=== PATIENT | female | born 1940 | race Caucasian/White ===

== ENCOUNTER → 2017-02-11 | Outpatient (CLI) | payer OTHER ==
[~2017-02-11] MED LIST: COMBIVENT INH14.7 GM INH; DIOVAN HCT 1601 EACH PO; DIOVAN320 MG PO; LEVOFLOXACIN500 MG PO; PREMARIN; PREMARIN1.25 MG PO; TORSEMIDE20 MG PO; Z.0.GEMFIBROZIL600 M PO; Z.0.LEVOTHROID75 MCG PO; Z.0.LISINOPRIL20 MG; Z.0.TOPROL XL25 MG PO; Z.0.ZOLOFT100 MG PO
== END ==
LOC: NPA 12:00
DX: S72.012D Unspecified intracapsular fracture of left femur, subsequent encounter for closed fracture with routine healing (principal)

== ENCOUNTER → 2017-02-15 | Outpatient (CLI) | payer OTHER | LOC: NPA 13:00 | DX: R69 Illness, unspecified (principal) ==